=== PATIENT | female | born 1985 | race Caucasian/White ===

== ENCOUNTER 2019-11-19 14:52 | Emergency (ER) | payer MEDICAID ==
[~2019-11-19] VITALS: Ht 172.7 cm; Wt 108.9 kg
[2019-11-19 15:03] VITALS: BP 135/81
[2019-11-19] MEDS ORDERED: FLUORESCEIN SODIUM OPHTH 1 EA STRIP ONE (15:46)
--- NOTE | 2019-11-19 17:00 | NUR ---
ELZBIETA LENS APPLIED WITH NORMAL SALINE FOR FLUSHING.
--- NOTE | 2019-11-19 17:34 | NUR ---
Patient discharged to home in stable condition. Written and verbal after care instructions given. Patient verbalizes understanding of instruction.
== END 2019-11-19 17:34 | disposition home or self-care (01) ==
LOC: ER 15:03
DX: H57.89 Other specified disorders of eye and adnexa (principal); Z98.890 Other specified postprocedural states; Z88.1 Allergy status to other antibiotic agents
CPT/HCPCS: 99284; J7030

== ENCOUNTER 2021-05-10 03:39 | Emergency (ER) | payer MEDICAID ==
[~2021-05-10] VITALS: Ht 172.7 cm; Wt 81.6 kg
[2021-05-10] MEDS ORDERED: HYDROCODONE/APAP 5/325MG TABLET ONE (04:04)
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
[2021-05-10] MEDS: HYDROCODONE/APAP 5/325MG TABLET PO ONE (04:07)
--- NOTE | 2021-05-10 04:16 | NUR ---
PATIENT TAKEN TO CT
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
[2021-05-10] MEDS ORDERED: HYDR-3972 PO (05:23)
--- NOTE | 2021-05-10 05:30 | NUR ---
Patient discharged to home in stable condition. Rx and Written and verbal after care instructions given. Patient verbalizes understanding of instruction.
[2021-05-10 05:31] VITALS: BP 122/64
== END 2021-05-10 05:32 | disposition home or self-care (01) ==
LOC: ER 03:42
DX: S16.1XXA Strain of muscle, fascia and tendon at neck level, initial encounter (principal); S00.83XA Contusion of other part of head, initial encounter; S00.03XA Contusion of scalp, initial encounter; Z88.1 Allergy status to other antibiotic agents; Y04.0XXA Assault by unarmed brawl or fight, initial encounter; Y93.89 Activity, other specified; Y92.89 Other specified places as the place of occurrence of the external cause; Y99.8 Other external cause status
CPT/HCPCS: 70450-TC; 70486-TC; 72125-TC